=== PATIENT | male | born 1960 | race Caucasian/White ===

== ENCOUNTER 2016-09-23 16:52 | Emergency (ER) | payer OTHER ==
[~2016-09-23] VITALS: Ht 185.4 cm; Wt 106.8 kg
[2016-09-23 17:00] VITALS: BP 140/88; PULSE 74; RESP 20; O2SAT 96
[2016-09-23] MEDS ORDERED: 0.9% Sodium Chloride 1,000 ML IV ONE (19:08)
[2016-09-23] MEDS ORDERED: Piperacillin-Tazo 3.375 Gm Inj 3.375 GM in Dextrose 5% Minibag Plus 50 ML IV ONE (19:10)
[2016-09-23] MEDS ORDERED: Vancomycin Dose per Pharmacist XX ONE (19:10)
--- NOTE | 2016-09-23 19:19 | ED.REPORT ---
HPI-Extremity Problem Upper Date of Service Sep 23, 2016 ED Provider: Leonardo Villalta PA-C Dalton is a 55-year-old male with history of COPD, hypertension and pain who presents with chief complaint of right hand pain. He states that he first noticed redness and swelling approximately 10 days ago when he woke up in the morning. It is been worsening since that time he was seen at the walk-in clinic and placed on cephalexin approximately one week ago. He states that if he takes his hand out of the splints is swelling increases significantly with pain radiating up into his forearm. He presented for a wound check at the urgent care today and was referred to emergency department out of concern for extensor tenosynovitis. Nursing Notes Stated Complaint: LEFT HAND PAIN-SENT BY Chief Complaint: Extremity Trauma Nursing Notes Reviewed: Yes Allergies: Coded Allergies: Contrast Media (Verified Allergy, Severe, 09/23/16) Scheduled Amoxicillin/Clav K 875-125 mg (Amoxicillin/Clav K 875-125 mg) 875 Mg Tab 1 TABLET PO BID Sulfamethoxazole/Trimeth 800-160 mg (Bactrim DS) 1 Each Tablet 2 TABLET PO BID General Time Seen by MD: 18:49 Chief Complaint Hand Injury left Past Medical History Past Medical History COPD, hypertension, chronic pain, MRSA Review of Systems Negative unless stated otherwise in history of present illness Physical Exam General: Well appearing, well developed, well nourished, no acute distress. Right hand: Redness, swelling and tenderness over third and fourth MCP joint with reduced range of motion. Head: Atraumatic, normocephalic. Eyes: No scleral icterus or injection. No discharge. Vision grossly intact. ENT: Voice clear, hearing grossly intact. Respiratory: No respiratory distress, no increased work of breathing. Speaks in complete sentences. Skin: Warm and dry. Neurological: Grossly nonfocal. Psychological: alert and oriented. Speech appropriate, linear and logical. Behavior appropriate. Initial Vital Signs Vital Signs (First) Date Time Temp Pulse Resp B/P Pulse Ox O2 Delivery O2 Flow Rate FiO2 09/23/16 17:00 36.2 74 20 140/88 96 Room Air Initial VS: Vital signs normal Interpretation & Diagnostics Lab Results Interpretation Result Diagram: 09/23/16 19309/23/161934 Test 09/23/16 19:35 White Blood Count 9.4th/mm3 (3.8-10.1) Red Blood Count 5.75mil/mm3 (4.40-5.80) Hemoglobin 17.1g/dL (13.8-17.2) Hematocrit 51.7% (41.0-50.0) Mean Corpuscular Volume 89.9fL (81-100) Mean Corpuscular Hemoglobin 29.7pg (27.0-35.0) Mean Corpuscular Hemoglobin Concent 33.1% (32.0-37.0) Red Cell Distribution Width 14.6% (12.3-15.4) Platelet Count 155bil/L (150-400) Neutrophils (%) (Auto) 46.9% (40-74) Lymphocytes (%) (Auto) 40.3% (14-46) Monocytes (%) (Auto) 9.3% (4-12) Eosinophils (%) (Auto) 2.8% (0-5) Basophils (%) (Auto) 0.6% (0-3) Sodium Level 136mEq/L (134-144) Potassium Level 4.3mEq/L (3.5-5.2) Chloride Level 99mEq/L (97-108) Carbon Dioxide Level 23mmol/L (18-29) Blood Urea Nitrogen 11mg/dL (6-24) Creatinine 0.83mg/dL (0.76-1.27) Estimat Glomerular Filtration Rate 103mL/min (>59) Glucose Level 121mg/dL (60-99) Calcium Level 9.1mg/dL (8.5-10.1) Total Bilirubin 0.3mg/dL (0.0-1.2) Aspartate Amino Transf (AST/SGOT) 18U/L (0-50) Alanine Aminotransferase (ALT/SGPT) 22U/L (0-44) Alkaline Phosphatase 71U/L (25-150) Total Protein 7.6g/dL (6.4-8.4) Albumin 4.5g/dL (3.4-5.0) Procedures Incision & Drainage Abscess I & D Abscess: Attempted drainage with 18-gauge needle. No purulent discharge produced. Procedure Performed by: ED physician Consent / Setup / Site Prep: Informed consent provided, Consent from patient , Hand hygiene observed Location of Abscess: Right third MCP. Skin Preparation Agent: Betadine Local Anesthesia: Lidocaine w epi 2% Post-Procedure / Complications: No complications, Tolerated procedure well, Patient stable Re-Eval/Medical Decision Med Decision/Clinical Course 85-year-old male with a history of MRSA infections presents with swelling over his right third MCP joint. Atypical spontaneously approximately 10 days ago. Has not responded to treatment with Keflex. Referred from urgent care to the emergency department. Suspect cellulitis with concern for tendon or joint involvement. No indication of systemic infection. IV was placed and patient was given a dose of vancomycin as well as Zosyn. Consulted with Dr. Castillo, who requests an MRI and will refer the patient was seen by Dr. Whitmore in clinic tomorrow. Dr. Ruffin attempted to drain an area of fluctuance around the MCP joint which produced only a small amount of blood. Arrangements were made for an urgent outpatient MRI and orthopedic follow-up. Prescribed Augmentin to be taken twice a day for 10 days and Bactrim DS to be taken twice a day for 10 days. Advised regarding pain control with his usual pain medications. Advised that he could take up to 3 of his hydrocodone/APAP 7.5/325 every 6 hours. Provided emergency return precautions. Patient understands and agrees with the plan. Consultation #1: Referral / Consult Name: Ronen Castillo MD Call Returned at: 19:19 Signaling Design Engineer: Will see patient Consultation #2: Referral / Consult Name: Ronen Castillo MD Signaling Design Engineer: Will see in office Note: Requested MRI to be performed tomorrow morning. Patient will be referred to Dr. Whitmore to be seen in clinic. Discharge & Departure Impression: Primary Impression: Cellulitis Site of cellulitis: extremity Site of cellulitis of extremity: upper extremity Laterality: right Qualified Code: L03.113 - Cellulitis of right upper limb Disposition: Home Discharge Condition All VS Reviewed: Yes Condition: Stable Additional Instructions: Evaluation for swelling of the right hand in the emergency department. History and physical suggest cellulitis or skin infection in her right hand. There is also concern it may be involving the joint or the tendons. We have scheduled an MRI for tomorrow morning at 9:00. Be sure to bring the sheet your provided to that appointment. Please contact Dr. Whitmore's office afterwards to arrange follow-up. I will write prescription for Augmentin to be taken twice a day for 10 days as well as Bactrim DS to be taken twice a day for 10 days. Return the emergency Department for any new or worsening symptoms including increasing pain, fever, racing heart, feeling ill. Referrals: Soham Whitmore DO EDSupervising Provider for APC: Jason Ruffin DO Attending Statement I personally took a history performed physical examination. I attempted the aspiration under meticulous sterile technique. No purulent material was drained. Repeat consultation appreciated. Plan for MRI tomorrow. Our radiologist decline the MRI tonight. We will set this up on the outpatient basis minimal follow-up with orthopnea office. I am going to broaden the coverage of antibiotics include both staph and strep. Continue to splint his arm. Close outpatient follow-up. copies to: Soham Whitmore Seth PA-C Sep 23, 2016 19:19 Jason Ruffin DO Sep 24, 2016 18:44
[2016-09-23] MEDS ORDERED: Vancomycin Inj 2,250 MG in 0.9% Sodium Chloride 500 ML IV ONE (19:25)
[2016-09-23 19:45] LABS: BASOPHILS % (AUTO) 0.6 % (0-3); EOSINOPHILS % (AUTO) 2.8 % (0-5); MONOCYTES % (AUTO) 9.3 % (4-12); Mean Corpuscular Hemoglobin 29.7 pg (27.0-35.0); Mean Corpuscular Volume 89.9 fL (81-100); NEUTROPHILS % (AUTO) 46.9 % (40-74); Platelet Count 155 bil/L (150-400)
[2016-09-23] MEDS ORDERED: HYDROmorphone 0.5 mg/0.5 mL iSecure Syringe IVPUSH PRN (21:50)
[2016-09-23] MEDS ORDERED: SULF1TAB7 PO (22:24)
[2016-09-23] MEDS ORDERED: AGM875T PO (22:24)
--- NOTE | 2016-09-23 22:44 | PCM.CONORT ---
Subjective Surgeon Admitting Provider: Attending Provider: Primary Care Physician:Adrianna Salazar MD Other Provider: Reason for Consultation: left hand pain and swelling Allergy Allergies: Coded Allergies: Contrast Media (Verified Allergy, Severe, 09/23/16) Medications Amoxicillin/Clav K 875-125 mg (Amoxicillin/Clav K 875-125 mg) 875 Mg Tab 1 TABLET PO BID Prescribed by: ANTONI GUAMAN Sulfamethoxazole/Trimeth 800-160 mg (Bactrim DS) 1 Each Tablet 2 TABLET PO BID Prescribed by: ANTONI GUAMAN History Other History/Comment Dalton Branch is a 55-year-old male patient who presents to the ER for evaluation of their ongoing symptoms. The patient states that their pain is a sharp in nature and mild/moderate in severity localized to the dorsum aspect of the hand without radiation. This has been progressing over the past 10 days after he will cope with swelling above his third knuckle. He reports no trauma but does report a history of MRSA infection in his left shoulder. Moreover, the pain is exacerbated by activities, especially with movement. Rest seems to improve the symptoms. Previous treatment has included he went to 3 doctors which have provided him with a splint, and antibiotics. There is no reports numbness, tingling, or weakness to the affected distal upper extremity. The patient denies any fever, chills, nausea, vomiting, chest pain, shortness of breath, or calf tenderness. 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 Objective Exam Vital Signs & I/O Vital Sign- Last 8 Hours Date Time Temp Pulse Resp B/P Pulse Ox O2 Delivery O2 Flow Rate FiO2 09/23/16 17:00 36.2 74 20 140/88 96 Room Air Lab & Micro Results Laboratory Tests Test 09/23/16 19:35 White Blood Count 9.4th/mm3 (3.8-10.1) Red Blood Count 5.75mil/mm3 (4.40-5.80) Hemoglobin 17.1g/dL (13.8-17.2) Hematocrit 51.7% (41.0-50.0) Mean Corpuscular Volume 89.9fL (81-100) Mean Corpuscular Hemoglobin 29.7pg (27.0-35.0) Mean Corpuscular Hemoglobin Concent 33.1% (32.0-37.0) Red Cell Distribution Width 14.6% (12.3-15.4) Platelet Count 155bil/L (150-400) Neutrophils (%) (Auto) 46.9% (40-74) Lymphocytes (%) (Auto) 40.3% (14-46) Monocytes (%) (Auto) 9.3% (4-12) Eosinophils (%) (Auto) 2.8% (0-5) Basophils (%) (Auto) 0.6% (0-3) Sodium Level 136mEq/L (134-144) Potassium Level 4.3mEq/L (3.5-5.2) Chloride Level 99mEq/L (97-108) Carbon Dioxide Level 23mmol/L (18-29) Blood Urea Nitrogen 11mg/dL (6-24) Creatinine 0.83mg/dL (0.76-1.27) Estimat Glomerular Filtration Rate 103mL/min (>59) Glucose Level 121mg/dL (60-99) Calcium Level 9.1mg/dL (8.5-10.1) Total Bilirubin 0.3mg/dL (0.0-1.2) Aspartate Amino Transf (AST/SGOT) 18U/L (0-50) Alanine Aminotransferase (ALT/SGPT) 22U/L (0-44) Alkaline Phosphatase 71U/L (25-150) Total Protein 7.6g/dL (6.4-8.4) Albumin 4.5g/dL (3.4-5.0) Result Diagram: 09/23/16193409/23/161934 Review of Systems: Constitutional: Negative, except as otherwise mentioned in the history above. Ophthalmologic: Negative, except as otherwise mentioned in the history above. Cardiovascular: Negative, except as otherwise mentioned in the history above. Respiratory: Negative, except as otherwise mentioned in the history above. Gastrointestinal: Negative, except as otherwise mentioned in the history above. Genitourinary: Negative, except as otherwise mentioned in the history above. Musculoskeletal: Negative, except as otherwise mentioned in the history above. Neurological: Negative, except as otherwise mentioned in the history above. Psychiatric: Negative, except as otherwise mentioned in the history above. Hematologic/Lymphatic: Negative, except as otherwise mentioned in the history above. Allergic/Immunologic: Negative, except as otherwise mentioned in the history above. H&P Surgical Exam Exam Musculoskeletal: CONST: WD,WN, NAD, A+OX3 OCULAR: EOMI, no conjunctivitis/icterus ENT: no deformities, scars or lesions CARDIAC: Pulse is regular. No cyanosis,clubbing,edema RESP: regular,unlabored MSK: normal light touch median, ulnar, radial, lateral antebrachial, axillary nerve distribution. Intact AIN, PIN, u, r, ax motor. C5-T1 intact, 2+ r/u pulse Left hand - scars, -discoloration/temp, + swelling dorsum of the third knuckle, no palpable loculation, - atrophy or asymmetry, - cascade sign, no global ligamentous laxity, TTP third MCP joint ROM left Ext-flex Resisted Strength/Pain MCP deferred 0-110 PIP 5/5 / - 0-65 DIP 5/5 / - 60 -60 Wrist 5/5 / - 50 deg of radioulnar arc +painful arc, - crepitus Signs grind:- Juanis's sign: - Joanie's test: - Alvarez's test: - Gamekeeper's test: - Tinel's test: - Phalen's test: - Froment's test: - Wartenberg's: - Additional Information Three-view x-rays of the left hand demonstrate no acute fracture or dislocation H&P Preop Plan Impression left hand 3rd MCP dorsal swelling/cellulitis Problems: Risks & Benefits * We have reviewed the risks and benefits as well as the alternatives to surgery. All questions were answered to the patient's satisfaction and a counseling note to that effect. The patient has provided informed consent. * I have counseled the patient regarding the deleterious effects that smoking during the perioperative period can have upon wound healing, infection rates, and the overall rate of complications. Plan Continue nonweightbearing left upper extremity Recommend close monitoring and observation Currently afebrile with no leukocytosis Recommend MRI with contrast to evaluate for possible infection/abscess Discussed with patient possible need for I&D Recommend oral antibiotics and follow-up with Dr. Whitmore in 1-2 days Please call with questions Please keep the affected extremity elevated when possible. You may use ice and/or heat as needed for comfort. All questions and concerns were addressed. Please feel free to call with any further questions, comments, and/or concerns. Ronen Castillo MD Sep 23, 2016 22:44
[2016-09-23 22:57] VITALS: BP 133/77; PULSE 73; RESP 16; O2SAT 95
== END 2016-09-23 22:58 | disposition home or self-care (01) ==
LOC: SED 16:52
DX: L03.113 Cellulitis of right upper limb (principal); J44.9 Chronic obstructive pulmonary disease, unspecified; I10 Essential (primary) hypertension; Z86.14 Personal history of Methicillin resistant Staphylococcus aureus infection; Z91.041 Radiographic dye allergy status
CPT/HCPCS: 10160; 36415; 80053; 85025; 96365; 96366; 96367; 96375; 96376; 99285; G0463; J1170; J2270; J2543; J3370; J7030; J7040

== ENCOUNTER 2016-09-25 09:23 | Day surgery (SDC) | payer OTHER ==
[2016-09-25] VITALS (9 sets, daily range): BP systolic 126–141; BP diastolic 66–91; PULSE 69–85; RESP 12–18; O2SAT 92–99
[~2016-09-25] VITALS: Ht 185.4 cm; Wt 108.0 kg
[~2016-09-25 09:23] MED LIST: AGM875T PO; SULF1TAB7 PO
[2016-09-25] MEDS ORDERED: fentaNYL-PF 50 mCg/mL 2 mL Inj ONE ×2 (09:24→11:12)
[2016-09-25] MEDS ORDERED: Ondansetron 2 mg/mL 2 mL Inj ONE (09:24)
[2016-09-25] MEDS ORDERED: Propofol 10,000 mCg/mL 20 mL Inj ONE (09:24)
[2016-09-25] MEDS ORDERED: CeFAZolin Inj 2 gm / 50mL D5W IV ONE (11:04)
[2016-09-25] MEDS ORDERED: Lactated Ringer's 1,000 ML IV SCH ×2 (11:50→13:08)
[2016-09-25 11:52] LABS: Mean Corpuscular Hemoglobin 29.1 pg (27.0-35.0); Mean Corpuscular Volume 89.1 fL (81-100)
[2016-09-25] MEDS ORDERED: SYMINH INHALATION (12:55)
[2016-09-25] MEDS ORDERED: ALBU8.5H2 INHALATION (12:55)
[2016-09-25] MEDS ORDERED: MELO7.5O PO (12:55)
[2016-09-25] MEDS ORDERED: HYDR-3825 PO (12:55)
[2016-09-25] MEDS ORDERED: AMLO-39 PO (12:55)
[2016-09-25] MEDS ORDERED: Lactated Ringer's 500 ML IV PRN (13:08)
[2016-09-25] MEDS: CeFAZolin Inj 2 GM in IV Premix 1 EACH IV ONE ×2 (13:08→14:03)
[2016-09-25] MEDS ORDERED: Lactated Ringer's 1,000 ML IV ONE ×3 (13:08)
[2016-09-25] MEDS ORDERED: Phenylephrine 10,000 mCg/mL Inj IVPUSH PRN (13:10)
[2016-09-25] MEDS ORDERED: Ondansetron 2 mg/mL 2 mL Inj IVPUSH PRN (13:10)
[2016-09-25] MEDS ORDERED: EPHEDrine Sulfate 50 mg/mL Inj IVPUSH PRN (13:10)
[2016-09-25] MEDS ORDERED: MetoCLOpramide 5 mg/mL 2 mL Inj IVPUSH PRN (13:10)
[2016-09-25] MEDS ORDERED: Atropine 0.4 mg/mL Inj IVPUSH PRN (13:10)
[2016-09-25] MEDS ORDERED: Labetalol 5 mg/mL 4 mL Inj IV PRN (13:10)
[2016-09-25] MEDS ORDERED: HYDROmorphone 1 mg/mL Inj IVPUSH PRN (13:10)
[2016-09-25] MEDS ORDERED: fentaNYL-PF 50 mCg/mL 2 mL Inj IVPUSH PRN ×2 (13:10)
[2016-09-25] MEDS ORDERED: hydrALAZINE 20 mg/mL Inj IVPUSH PRN (13:10)
[2016-09-25] MEDS ORDERED: Dexamethasone 4 mg/mL Inj IVPUSH PRN (13:10)
--- NOTE | 2016-09-25 13:20 | PCM.HPANE ---
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) Diabetes History Hx Diabetes?: No Medications Hypertension Medication: Yes Home Meds Incl Beta Santi: No Active Scripts Sulfamethoxazole/Trimeth 800-160 mg (Bactrim DS)1 Each Tablet2 Tablet PO BID # 40 TABLET Ref 0 Prov:Leonardo Villalta PA-C 09/23/16 Amoxicillin/Clav K 875-125 mg 875 Mg Tab1 Tablet PO BID #20 TABLET Ref 0 Prov:Leonardo Villalta PA-C 09/23/16 Reported Medications Budesonide/Formoterol 160-4.5 mcg Inh (Symbicort 160-4.5 mcg Inh)120 Puff Inhaler1 Puff INHALATION BID #1 INHALER Ref 0 09/25/16 Meloxicam 7.5 Mg/5 Ml Oral.susp7.5 Mg PO DAILY 30 Days Ref 0 09/25/16 Hydrocodone-Acetaminophen 7.5-325 mg 1 Each Tablet1 Tablet PO Q4H PRN For Pain Ref 0 09/25/16 Amlodipine (Norvasc)5 Mg Tablet5 Mg PO DAILY Ref 0 09/25/16 Albuterol HFA (Proair HFA)8.5 Gm Hfa.aer.ad2 Puffs INHALATION Q4H #1 INHALER 09/25/16 History History of ENT Problems?: No Hx of Heart Problems?: No Hx of Respiratory Problem?: Yes Respiratory History: Positive for:: COPD Neurological History: Positive for:: Headaches Hx of GI Problems?: No Hx of Problems?: No Hx Musculoskeletal Problems?: Yes Musculoskeletal History: Positive for:: Back Injury Musculoskeletal Trauma Smoking Status: Former Smoker Stop/Bang Treated for Sleep Apnea?: No S-Snoring: Do You Snore Loudly: Yes T-Tired: feel tired, fatigued: No O-Obsered: Observed not breath: Yes P-Blood Pressure: treated: Yes B- Body Mass Index > 35 kg/m2: No A- Age over 50: Yes G- Gender Male: Yes GLEN Risk Assessment: High Risk, =/>3 Yes GLEN Category 4 OutPt Procedure: Yes Risk Assessment Category Category 1A: Patient has history of documented sleep apnea, and HAS NOT received any narcotic, sedative or anesthesia administration during this stay. Category 1B: Patient has history of documented sleep apnea, and HAS received any narcotic , sedative or anesthesia administration during this stay Category 2: Patient has SUSPECTED Obstructive Sleep Apnea, and HAS received any narcotic , sedative or anesthesia administration during this stay. Category 3: Patient has SUSPECTED Obstructive Sleep Apnea and HAS NOT received narcotic, sedative or anesthesia administration during this stay. Category 4: Outpatient in Procedural Areas with known sleep apnea or who screen positive for High Risk via the STOP/BANG questionnaire. Exam Exam Vital Signs Vital Signs Date Time Temp Pulse Resp B/P Pulse Ox O2 Delivery O2 Flow Rate FiO2 09/25/16 11:42 36 78 17 141/91 93 General Appearance: Alert, Oriented X3, Cooperative, No Acute Distress HEENT/AIRWAY: MP 3 Lungs: Clear to Auscultation, Normal Air Movement Heart: Exam Unremarkable, Regular Rate/Rhythm, No Murmurs/Rubs/Gallops Meds/Labs/Diagnostics Admission Meds Current Medications Fentanyl Citrate 100 mcg 100 mcg STK-MED ONCE .ROUTE Last administered on 11:23; Start 09/25/16 at 11:12; Stop 09/25/16 at 11:14; Status DC Cefazolin Sodium/ Dextrose 2 gm/ Premix 50 ml @ 100 mls/hr PREOP ONCE IV Last administered on 09/25/16 13:08; Start 09/25/16 at 11:47; Stop 09/25/16 at 12:16; Status DC Lactated Ringer's (Lr) 1,000 ml @ ud STK-MED ONCE IV Last administered on 09/25 13:08; Start 09/25/16 at 13:08; Stop 09/25/16 at 13:09; Status DC Labs Test 09/25/16 11:38 White Blood Count 7.8th/mm3 (3.8-10.1) Red Blood Count 6.23mil/mm3 (4.40-5.80) Hemoglobin 18.1g/dL (13.8-17.2) Hematocrit 55.5% (41.0-50.0) Mean Corpuscular Volume 89.1fL (81-100) Mean Corpuscular Hemoglobin 29.1pg (27.0-35.0) Mean Corpuscular Hemoglobin Concent 32.6% (32.0-37.0) Red Cell Distribution Width 14.9% (12.3-15.4) Platelet Count donis/L (150-400) Erythrocyte Sedimentation Rate 1mm/hr (0-30) C-Reactive Protein 0.2mg/dL (0.0-0.5) Plan Impression Patient chart reviewed, patient interviewed and anesthestic plan with risks, benefits, and alternatives discussed, and informed consent obtained. NPO Status: >8h ASA Physical Status: ASA3 Severe Disease Anesthetic Support Modalities: [place] Scope Anesthetic Plan: GA Bene/Risks/Altern/Consents: Yes HP Complete Prior to Induction: Yes Other Pt first asked about possibly not going under GA. Only reasonable alternative is nerve block, but he had a pretty significant complication last time, so I would avoid that if not necessary. Discussed risks and benefits, and we will do general anesthesia. Douglas Tinsley MD Sep 25, 2016 13:20
[2016-09-25] MEDS ORDERED: HYDROcodone-APAP 7.5-325 mg Tablet PO PRN (13:40)
[2016-09-25] MEDS ORDERED: Lidocaine 1%-Epi 1:100,000 20 mL Inj NERVEBLOCK ONE (13:56)
--- NOTE | 2016-09-25 14:30 | PCM.ANEP1 ---
Post Anesthesia Phase 1 PACU Phase 1 Assessment Date of Service: Sep 25, 2016 Vital Signs Vital Signs Date Time Temp Pulse Resp B/P Pulse Ox O2 Delivery O2 Flow Rate FiO2 09/25/16 14:25 37.2 82 12 141/66 99 Simple Mask 8 09/25/16 11:42 36 78 17 141/91 93 Anesthetic Administered: GA Level of Alertness: Sleepy, easy to arouse RUBIO's with Equal Strength: Yes Pain: No Nausea or Vomiting: No Oxygen Delivery: Simple Mask Lungs: Clear to Auscultation, Normal Air Movement Douglas Tinsley MD Sep 25, 2016 14:30
--- NOTE | 2016-09-26 01:51 | PCM.ANEP2 ---
Post Anesthesia Evaluation ASA/CMS Post Anesthesia Date of Service: Sep 25, 2016 VS in Patient's Normal Range?: Yes Resp Stable; Airway Patent?: Yes CV Function & Hydration Stable: Yes Mental Status Recovered?: Yes Pain control Satisfactory?: Yes N/V Control Satisfactory?: Yes Douglas Tinsley MD Sep 26, 2016 01:51
--- NOTE | 2016-09-26 04:48 | OP ---
[address] [address] OPERATIVE REPORT PATIENT: CHARLENE PHELPS : 1960 MR#: [id number] ADMIT: 09/25/2016 JOB ID: [id number] DATE OF SURGERY: 09/25/2016 PREOPERATIVE DIAGNOSIS(ES): Right hand middle and ring finger cellulitis and abscess. POSTOPERATIVE DIAGNOSIS(ES): Right hand middle and ring finger cellulitis and abscess. PROCEDURE: Incision and drainage of the right hand, middle and ring finger. SURGEON: Soham Whitmore DO. ANESTHESIA: General. HISTORY: The patient is a 55-year-old male with 2 week history of right hand pain and swelling. He had attempted an aspiration in the emergency department that was unsuccessful, and he has swelling. He failed conservative treatment with antibiotics and bracing. The only relief he got was with wrapping his hand in an Randy wrap and once this was removed the swelling returned. Discussed with the patient upon presentation today, as he was making some mild improvement, the option to continue to observe versus proceeding with surgery for irrigation and debridement. He opted to proceed with irrigation and debridement. He understood the risks included, but not limited to, neurovascular tendon injury, failure to resolve the infection, stiffness, persistent pain, all which may require further intervention. The patient had all questions answered. Consent was signed and placed on chart. PROCEDURE IN DETAIL: The patient was brought to the operative suite and placed supine on the operating table. A surgical time-out was performed. Everybody was in agreement. After appropriate anesthesia was obtained, the patient's right arm was elevated and the tourniquet inflated to 250 mmHg. The initial incision was made just overlying the 3rd metacarpophalangeal joint and extended to the level of the mid proximal phalanx. Dissection was carried down overlying the extensor tendon and identified some murky fluid emanating from the wound. This area and fluid was then cultured for aerobic and anaerobic cultures, Gram stain, fungal and mycobacterium. Dissection was carried proximally surrounding the extensor tendons, both dorsally and volarly and no further fluid or purulence was appreciated. Attention was then turned towards the ring finger. Dissection was carried over directly onto the dorsum of the proximal phalanx to the ring finger as the area of localized tenosynovitis was appreciated on MRI. Dissection was carried down overlying the extensor tendon and again very minimal fluid emanating from this area. The fluid was cultured with aerobic and anaerobic cultures as well as Gram stain, fungal and mycobacterium. The extensor tendon was also elevated and no further fluid collection was appreciated from volar to the tendon. Copious irrigation was performed. Deep quarter-inch Iodoform gauze was then placed and the skin incisions loosely closed with 5-0 nylon simple interrupted fashion. The patient was then placed in a well-padded well-molded volar resting splint. ESTIMATED BLOOD LOSS: Less than 1 cc. COMPLICATIONS: None. DISPOSITION: The patient tolerated the procedure well. Anesthesia was reversed and the patient was transferred back to recovery. SPECIMENS: Two cultures obtained; one from the right hand and middle finger and the second from the right ring finger. POSTOPERATIVE PLAN: The patient will remove the splint and the drains tomorrow at home and start initiating soaks with half peroxide and half saline twice a day over the weekend. He is to continue working on range of motion of the hand and follow up in the office next week for a wound recheck. He is currently on antibiotics and electing to continue to do so.
== END 2016-09-25 23:59 | disposition home or self-care (01) ==
LOC: SAS 09:23
PROVIDERS: ATTEND Orthopaedic Surgery
DX: L02.511 Cutaneous abscess of right hand (principal); L03.011 Cellulitis of right finger; I10 Essential (primary) hypertension; J44.9 Chronic obstructive pulmonary disease, unspecified; G89.29 Other chronic pain; M72.0 Palmar fascial fibromatosis [Dupuytren]; Z86.14 Personal history of Methicillin resistant Staphylococcus aureus infection; Z87.891 Personal history of nicotine dependence
CPT/HCPCS: 26010; 36415; 85027; 85651; 86140; 87070; 87075; 87101; 87205; J0690; J2250; J2405; J3010; J7120

== ENCOUNTER 2017-01-21 07:10 | Day surgery (SDC) | payer OTHER ==
[~2017-01-21] VITALS: Ht 185.4 cm; Wt 108.6 kg
[2017-01-21] VITALS (10 sets, daily range): BP systolic 110–143; BP diastolic 70–85; PULSE 62–77; RESP 8–16; O2SAT 92–98
[~2017-01-21 07:10] MED LIST changes: -AGM875T PO; +ALBU8.5H2 INHALATION; +AMLO-39 PO; +CeFAZolin 2 Gm/50 mL D5W IV Premix IV ONE; +HYDR-3825 PO; +IBUP200C PO; -SULF1TAB7 PO; +SYMINH INHALATION
[2017-01-21] MEDS ORDERED: HYDROmorphone 1 mg/mL Inj ONE (07:11)
[2017-01-21] MEDS ORDERED: Propofol 10,000 mCg/mL 20 mL Inj ONE (07:11)
[2017-01-21] MEDS ORDERED: Dexamethasone 4 mg/mL Inj ONE (07:11)
[2017-01-21] MEDS ORDERED: fentaNYL-PF 50 mCg/mL 2 mL Inj ONE (07:11)
[2017-01-21] MEDS ORDERED: Ondansetron 2 mg/mL 2 mL Inj ONE (07:11)
[2017-01-21] MEDS ORDERED: Lidocaine PF 1% 30 mL Inj ONE (07:11)
[2017-01-21] MEDS ORDERED: CeFAZolin 2 Gm/50 mL D5W Duplex Bag IV ONE (08:07)
[2017-01-21] MEDS ORDERED: oxyCODONE-Acetamin 5-325 mg Tablet PO PRN (08:20)
[2017-01-21] MEDS: Lactated Ringer's 1,000 ML IV SCH ×2 (08:31→09:51)
[2017-01-21] MEDS ORDERED: Lactated Ringer's 500 ML IV PRN (09:51)
[2017-01-21] MEDS ORDERED: Lactated Ringer's 1,000 ML IV SCH (09:51)
--- NOTE | 2017-01-21 09:51 | PCM.HPANE ---
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), Denies:: Fam Anesthesia Reaction, Fam Malignant Hypertherm, Malignant Hyperthermia Diabetes History Hx Diabetes?: No MRSA MRSA: Yes (2013 [facility] ) Medications Hypertension Medication: Yes (amlodine) Home Meds Incl Beta Santi: No Reported Medications Ibuprofen 200 Mg [id number] Mg PO QID PRN For Pain Ref 0 01/15/17 Budesonide/Formoterol 160-4.5 mcg Inh (Symbicort 160-4.5 mcg Inh)120 Puff Inhaler1 Puff INHALATION BID #1 INHALER Ref 0 09/25/16 Hydrocodone-Acetaminophen 7.5-325 mg 1 Each Tablet1 Tablet PO Q4H PRN For Pain Ref 0 09/25/16 Amlodipine (Norvasc)5 Mg Tablet5 Mg PO DAILY Ref 0 09/25/16 Albuterol HFA (Proair HFA)8.5 Gm Hfa.aer.ad2 Puffs INHALATION Q4H #1 INHALER 09/25/16 Discontinued Reported Medications Meloxicam 7.5 Mg/5 Ml Oral.susp7.5 Mg PO DAILY 30 Days Ref 0 09/25/16 Discontinued Scripts Sulfamethoxazole/Trimeth 800-160 mg (Bactrim DS)1 Each Tablet2 Tablet PO BID # 40 TABLET Ref 0 Prov:Leonardo Villalta PA-C 09/23/16 Amoxicillin/Clav K 875-125 mg 875 Mg Tab1 Tablet PO BID #20 TABLET Ref 0 Prov:Leonardo Villalta PA-C 09/23/16 History History of ENT Problems?: No HEENT History: Denies:: Cataracts Glaucoma Hearing Problem Denture Type: None Teeth Condition: Within Normal Limits Hx of Heart Problems?: No Cardiovascular History: Positive for:: Chest Pain (c/p syndrome) Hypertension Denies:: Abdominal Aortic Aneurism Atrial Fibrillation Cardiac Surgery Congestive Heart Failure Coronary Artery Disease Edema Pacemaker Hx of Respiratory Problem?: Yes Respiratory History: Positive for:: COPD Use of Inhalers / NEBS (albuterol, Symbicort) Denies:: Asthma Chest Surgery Cough Dyspnea Emphysema Hemoptysis Oxygen Administration Pneumonia Pulmonary Embolism Tuberculosis Use of C-PAP Machine Hx Neurologic Problems?: Yes Neurological History: Positive for:: Headaches (Related to Closed head injury) Denies:: Alzheimer's Disease CVA Dementia Dizziness Multiple Sclerosis Parkinson's Disease Seizures TIA Hx of GI Problems?: No Hx of Problems?: No Male Hx: Denies:: Prostate Problems Scrotal Mass Testicular Surgery Skin History: Denies:: History Skin Disorders? Pressure Ulcers Hx Musculoskeletal Problems?: Yes Musculoskeletal History: Positive for:: Back Injury (compact disc mid back) Musculoskeletal Trauma Osteoarthritis Denies:: Degenerative Joint Fibromyalgia Joint Replacement Myasthenia Gravis Rheumatoid Arthritis Hx of Psycho/Social Problems?: No Hx Surgeries?: Yes (shoulder, ankle) Hx Any Other Health Problems?: Yes Other History: Positive for:: Hospitalization (2014 chest pain) Denies:: Cancer Endocrine Disease Thyroid Disease History Blood Transfusions: Positive for:: Accept Blood Products? Denies:: Blood Transfusions Hx Diabetes: No Hx Alcohol Use: NoHx Substance Use: No Smoking Status: Former Smoker Stop/Bang S-Snoring: Do You Snore Loudly: No T-Tired: feel tired, fatigued: No O-Obsered: Observed not breath: No P-Blood Pressure: treated: Yes B- Body Mass Index > 35 kg/m2: No A- Age over 50: Yes N- Neck Large Circumference: Yes G- Gender Male: Yes GLEN Total Score: 4 Risk Assessment Category Category 1A: Patient has history of documented sleep apnea, and HAS NOT received any narcotic, sedative or anesthesia administration during this stay. Category 1B: Patient has history of documented sleep apnea, and HAS received any narcotic , sedative or anesthesia administration during this stay Category 2: Patient has SUSPECTED Obstructive Sleep Apnea, and HAS received any narcotic , sedative or anesthesia administration during this stay. Category 3: Patient has SUSPECTED Obstructive Sleep Apnea and HAS NOT received narcotic, sedative or anesthesia administration during this stay. Category 4: Outpatient in Procedural Areas with known sleep apnea or who screen positive for High Risk via the STOP/BANG questionnaire. Exam Exam Vital Signs Vital Signs Date Time Temp Pulse Resp B/P Pulse Ox O2 Delivery O2 Flow Rate FiO2 01/21/17 08:11 Supplement Oxygen 01/21/17 07:56 36.3 62 16 140/85 95 Room Air General Appearance: Alert HEENT/AIRWAY: MP 3, Neck Movement (FROM, 3 FB) Meds/Labs/Diagnostics Admission Meds Current Medications Lactated Ringer's (Lr) 1,000 ml @ 120 mls/hr Q8H20M IV Last administered on t 08:31; Start 01/21/17 at 05:00; Stop 01/21/17 at 13:19 Plan Impression Patient chart reviewed, patient interviewed and anesthestic plan with risks, benefits, and alternatives discussed, and informed consent obtained. NPO per Anesth. Guidelines: Yes ASA Physical Status: ASA3 Severe Disease Anesthetic Plan: GA Bene/Risks/Altern/Consents: Yes HP Complete Prior to Induction: Yes Carlin Bucio MD Jan 21, 2017 09:16
[2017-01-21] MEDS ORDERED: MetoCLOpramide 5 mg/mL 2 mL Inj IVPUSH PRN (09:55)
[2017-01-21] MEDS ORDERED: Dexamethasone 4 mg/mL Inj IVPUSH PRN (09:55)
[2017-01-21] MEDS ORDERED: EPHEDrine Sulfate 50 mg/mL Inj IVPUSH PRN (09:55)
[2017-01-21] MEDS ORDERED: Ondansetron 2 mg/mL 2 mL Inj IVPUSH PRN (09:55)
[2017-01-21] MEDS ORDERED: fentaNYL-PF 50 mCg/mL 2 mL Inj IVPUSH PRN (09:55)
[2017-01-21] MEDS ORDERED: Phenylephrine 10,000 mCg/mL Inj IVPUSH PRN (09:55)
[2017-01-21] MEDS ORDERED: HYDROmorphone 1 mg/mL Inj IVPUSH PRN (09:55)
[2017-01-21] MEDS ORDERED: Lidocaine 1%-Epi 1:100,000 20 mL Inj NERVEBLOCK ONE (10:19)
[2017-01-21] MEDS ORDERED: Albuterol-Ipratropium 3 mL Inhalation Solution ONE (11:17)
--- NOTE | 2017-01-21 12:02 | PCM.ANEP1 ---
Post Anesthesia PACU Phase 1 Assessment Vital Signs Vital Signs Date Time Temp Pulse Resp B/P Pulse Ox O2 Delivery O2 Flow Rate FiO2 01/21/17 11:40 63 12 138/81 92 Nasal Cannula 4 01/21/17 11:35 66 14 127/70 93 Nasal Cannula 4 01/21/17 11:30 36.6 77 11 94 Room Air 01/21/17 11:25 72 8 131/71 98 NEB TX 10 01/21/17 11:20 69 13 131/82 98 Simple Mask 9 01/21/17 11:15 75 13 138/79 98 Simple Mask 9 01/21/17 11:09 36.4 143/80 01/21/17 08:11 Supplement Oxygen 01/21/17 07:56 36.3 62 16 140/85 95 Room Air Anesthetic Administered: GA Level of Alertness: Awake, talking RUBIO's with Equal Strength: Yes Pain: No Nausea or Vomiting: No CV Function & Hydration Stable: Yes Airway Device: Oxygen Delivery: Simple Mask Lungs: Wheezes Dermatome Level: Full Sensation PACU Phase 2 Assessment Complications: No Follow up Care: N/A Patient Instructions Provided: N/A Carlin Bucio MD Jan 21, 2017 12:02
[2017-01-21] MEDS ORDERED: Albuterol-Ipratropium 3 mL Inhalation Solution NEB ONE (12:05)
--- NOTE | 2017-01-21 13:48 | OP ---
[address] [address] OPERATIVE REPORT PATIENT: CHARLENE PHELPS : 1960 MR#: [id number] ADMIT: 01/21/2017 JOB ID: [id number] DATE OF SURGERY: 01/21/2017 PREOPERATIVE DIAGNOSIS(ES): Right ring finger and palm Dupuytren's contracture. POSTOPERATIVE DIAGNOSIS(ES): Right ring finger and palm Dupuytren's contracture. PROCEDURE: Right ring finger and palmar fasciectomy. SURGEON: Soham Whitmore DO ANESTHESIA: General. HISTORY: The patient is a pleasant 56-year-old male with longstanding history of right ring finger contracture secondary to Dupuytren's. We attempted Xiaflex injection with manipulation but it was not very successful at relieving all of his contracture. After the swelling had resolved from the injection and manipulation, the patient opted to proceed with a fasciectomy. He understood the risks include, but are not limited to, neurovascular injury, tendon injury, infection, hematoma, wound healing complications, stiffness, persistent pain, which may require further intervention. The patient had all questions answered. Consent was signed and placed in chart. PROCEDURE IN DETAIL: The patient was brought to the operative suite and placed supine on the operating table. Surgical time-out was performed. Everyone in the room was in agreement. After appropriate anesthesia was obtained, a right upper arm tourniquet was applied and the right upper extremity was prepped and draped in sterile fashion. The right upper extremity was then exsanguinated and the tourniquet inflated to 250 mmHg. The patient's ring finger and palm was approached via a Ryanne incision. Dissection started proximally and was carried down to the longitudinal cord. The cord was aiming toward the ulnar aspect of the ring finger. The ulnar neurovascular bundle was easily identified and dissected free from the pathologic cord, which did displace the neurovascular bundle volar and centrally. The digital neurovascular bundle was decompressed all the way through the distal extent of the incision, allowing for complete visualization and dissection of the pathologic cord. The pathologic cord was then released and removed in its entirety, allowing for full extension at the MCP and the PIP joints. Copious irrigation was performed, final hemostasis achieved, and the skin closed with 5-0 nylon in a simple interrupted fashion. The patient was then placed into a well-padded well-molded volar resting splint, keeping the fingers extended. ESTIMATED BLOOD LOSS: 5 mL. COMPLICATIONS: None. DISPOSITION: The patient tolerated the procedure well. Anesthesia was reversed. The patient was transferred to the PACU for recovery. SPECIMENS: Pathologic cord disposed of. POSTOPERATIVE PLAN: The patient will follow up with occupational therapy within the week to get a new brace to keep the finger extended while he sleeps at night. They will also change out his dressing and have him start initiating range of motion to the right hand.
== END 2017-01-21 23:59 | disposition home or self-care (01) ==
LOC: SAS 07:10
PROVIDERS: ATTEND Orthopaedic Surgery
DX: M72.0 Palmar fascial fibromatosis [Dupuytren] (principal); I10 Essential (primary) hypertension; J44.9 Chronic obstructive pulmonary disease, unspecified; R51 Headache; Z87.891 Personal history of nicotine dependence; Z79.899 Other long term (current) drug therapy
CPT/HCPCS: 26123; J0690; J1100; J1170; J2405; J2704; J3010; J7120; J7620